=== PATIENT | female | born 1990 | race Caucasian/White ===

== ENCOUNTER 2016-05-27 08:35 | Inpatient (IN) | payer BC, OTHER ==
[2016-05-27] MEDS ORDERED: DEXTROSE 5%-LACTATED RINGERS 1,000 ML IV SCH (09:00)
[2016-05-27] MEDS ORDERED: TUBERCULIN PPD 5 TU/0.1ML SYRINGE (IN PATIENT USE ONLY) ID ONE (09:15)
[2016-05-27 09:28] VITALS: BMI 26.2
[2016-05-27] MEDS ORDERED: AMPICILLIN - 2 GM in SODIUM CHLORIDE 100 ML IVPB ONE (09:40)
[2016-05-27 10:28] LABS: BASOPHIL 0.1 % (0-2.0); EOSINOPHIL 0.5 % (0-4.5); MCH 28.8 pg (25.7-33.7); MCHC 34.1 g/dl (32.0-36.0); MEAN CELL VOLUME 84.3 fl (80-96); MEAN PLT VOLUME 9.5 fl (7.5-11.1); NEUTROPHILS 82.8 % (42.8-82.8); PLATELET COUNT 100 K/MM3 (134-434); RDW 15.1 % (11.6-15.6)
[2016-05-27 10:52] LABS: INR 0.99 (0.82-1.09); PROTHROMBIN TIME (PATIENT) 10.9 SEC (9.98-11.88)
[2016-05-27 10:55] LABS: ACTIVATED PTT 28.4 SECONDS (26.9-34.4)
[2016-05-27 11:06] LABS: COCKROFT - GAULT 243.2445; CREATININE 0.4 mg/dL (0.55-1.02)
[2016-05-27] MEDS ORDERED: BUTORPHANOL TARTRATE 1 MG/ML VIAL IVPB ONE (11:15)
[2016-05-27] MEDS ORDERED: PROMETHAZINE HCL 25 MG/1 ML VIAL IVPUSH ONE (12:29)
--- NOTE | 2016-05-27 12:39 | HP ---
Past Medical History - Admission Chief Complaint: Pain in labor History of Present Illness: 25 yo @ 40 weeks gestation, admitted for Labor pain. She denies any vaginal bleeding nor ROM. History Source: Patient Limitations to Obtaining History: No Limitations - Past Medical History ...: 3 ...Para: 1 ...Term: 1 ...: 0 ...Spon : 1 ...Induced : 0 ...Multiple Gestation: 0 ...LMP: 09/03/15 ... Weeks Gestation by Dates: 38.1 ...EDC by Dates: 06/09/16 ...EDC by Sono: 05/17/16 - Past Surgical History Past Surgical History: Yes: None Hx Myomectomy: No Hx Transabdominal Cerclage: No - Smoking History Smoking history: Never smoked Have you smoked in the past 12 months: No - Alcohol/Substance Use Hx Alcohol Use: No - Social History Usual Living Arrangement: Yes: With Spouse History of Recent Travel: No Home Medications - Allergies Allergies/Adverse Reactions: Allergies Allergy/AdvReac Type Severity Reaction Status Date / Time No Known Drug Allergies Allergy Mild Verified 05/27/16 10:48 - Home Medications Home Medications: Ambulatory Orders Vitamins (Sjr) - 1 tab PO DAILY 08/15/14 Family Disease History - Family Disease History Family History: Unremarkable Review of Systems - Review of Systems Constitutional: reports: No Symptoms Eyes: reports: No Symptoms HENT: reports: No Symptoms Neck: reports: No Symptoms Cardiovascular: reports: No Symptoms Respiratory: reports: No Symptoms Gastrointestinal: reports: No Symptoms Genitourinary: reports: Pain Breasts: reports: No Symptoms Reported Musculoskeletal: reports: No Symptoms Integumentary: reports: No Symptoms Neurological: reports: No Symptoms Endocrine: reports: No Symptoms Hematology/Lymphatic: reports: No Symptoms Psychiatric: reports: No Symptoms Pain Intensity: 7 Physical Exam - Maternity Vital Signs: Vital Signs Temperature 97.7 F 05/27/16 10:30 Pulse Rate 71 05/27/16 10:30 Respiratory Rate 18 05/27/16 10:30 Blood Pressure 112/54 05/27/16 10:30 O2 Sat by Pulse Oximetry (%) Constitutional: Yes: Well Nourished Eyes: Yes: Conjunctiva Clear HENT: Yes: Atraumatic Neck: Yes: Supple, Trachea Midline Cardiovascular: Yes: Regular Rate and Rhythm Lungs: Clear to auscultation Breast(s): Yes: WNL - Abdominal Exam/OB Number of Fetuses: Single Presentation: Vertex Contractions: Yes Regularity: Irregular - Vaginal Exam/OB Vaginal Bleediing: No Dilatation (cm): 6 Effacement (%): 80 Amniotic Membrane Status: Intact Station: -2 - Physical Exam Musculoskeletal: Yes: WNL Extremities: Yes: WNL ...Motor Strength: WNL Psychiatric: Yes: Alert, Oriented - Labs Lab Results: CBC, BMP 05/27/16 09:55 05/27/16 09:55 Problem List - Problems (1) Pain during labor Code(s): O99.89 - OTH DISEASES AND CONDITIONS COMPL PREG/CHLDBRTH R52 - PAIN, UNSPECIFIED Assessment/Plan Active labor Admit to L&D Group B Strep Prophylaxis Anticipate Vaginal delivery
[2016-05-27] MEDS ORDERED: OXYTOCIN 15 UNITS/ LR 250 ML 250 ML IVPB SCH (12:45)
[2016-05-27] MEDS: D5W-LR W/ 20 UNITS OXYTOCIN 1,000 ML IV SCH (13:20)
[2016-05-27] MEDS ORDERED: BISACODYL 10 MG SUPP.RECT RC PRN (13:40)
[2016-05-27] MEDS ORDERED: AMPICILLIN (PRE-DOCKED) 1 GM/100 ML BAG IVPB SCH (13:40)
[2016-05-27] MEDS ORDERED: WITCH HAZEL 50% (TUCKS) 40 PAD/JAR PAD TP PRN (13:40)
[2016-05-27] MEDS ORDERED: BENZOCAINE 28 GM HEMORRHOIDAL OINTMENT TP PRN (13:40)
[2016-05-27] MEDS ORDERED: METHYLERGONOVINE MALEATE 0.2 MG/1 ML AMP IM PRN (13:40)
[2016-05-27] MEDS ORDERED: IBUPROFEN 600 MG TABLET (FP) PO PRN (13:40)
[2016-05-27] MEDS ORDERED: BENZOCAINE 20% 57 GM BOTTLE TP PRN (13:40)
--- NOTE | 2016-05-27 13:44 | PN ---
Delivery - Delivery Vaginal Delivery: Spontaneous Type of Anesthesia: Local Episiotomy/Laceration: Midline EBL (cc): 350 Delivery, Single - Feeding Plan Initial Plan: Exclusive throughout hospitalization Remarks - Remarks Remarks: Normal spontaneous vaginal delivery over midline episiotomy. Nose / Oropharynx suctioned @ perineum. Nuchal cord x 1 clamped and cut. Baby handed to nurse. Placenta expelled spontaneously intact. Laceration repaired with 2.0 Chromic.
[2016-05-27] MEDS: FERROUS SO4 325 MG TABLET (FP) PO SCH (16:49)
[2016-05-27] MEDS: ACETAMINOPHEN 325 MG TABLET (FP) PO PRN (16:49)
[2016-05-28 08:10] LABS: MCH 28.8 pg (25.7-33.7); MCHC 33.7 g/dl (32.0-36.0); MEAN CELL VOLUME 85.6 fl (80-96); MEAN PLT VOLUME 9.7 fl (7.5-11.1); PLATELET COUNT 97 K/MM3 (134-434); RDW 15.1 % (11.6-15.6)
--- NOTE | 2016-05-28 08:58 | PN ---
Post Progress Note - Subjective Subjective: Pt seen/evaluated doing well. Pain controlled. Tolerating diet. VB minimal. No CP/SOB/F/C/MCCOLLUM. Type of Delivery: Vital Signs: Vital Signs Temperature 98.2 F 05/28/16 05:43 Pulse Rate 80 05/28/16 05:43 Respiratory Rate 18 05/28/16 05:43 Blood Pressure 98/53 05/28/16 05:43 O2 Sat by Pulse Oximetry (%) Uterus: Yes: Fundus Firm, Fundus below umbilicus Abdomen/GI: Yes: Abdomen soft, Passing flatus. No: Abdominal Distention, Tender Lochia: Yes: Rubra Lochia, amount: Small Extremities: Yes: Calves non-tender. No: Edema Perineum: Yes: Episiotomy - Labs Labs: CBC WBC 9.0 K/mm3 (4.0-10.0) 05/28/16 07:20 RBC 3.41 M/mm3 (3.60-5.2) L 05/28/16 07:20 Hgb 9.8 GM/dL (10.7-15.3) L D 05/28/16 07:20 Hct 29.2 % (32.4-45.2) L D 05/28/16 07:20 MCV 85.6 fl (80-96) 05/28/16 07:20 MCHC 33.7 g/dl (32.0-36.0) 05/28/16 07:20 RDW 15.1 % (11.6-15.6) 05/28/16 07:20 Plt Count 97 K/MM3 (134-434) L 05/28/16 07:20 MPV 9.7 fl (7.5-11.1) 05/28/16 07:20 Neutrophils % Y 05/28/16 07:20 Lymphocytes % Y 05/28/16 07:20 Monocytes % 5.1 % (3.8-10.2) 05/27/16 09:55 Eosinophils % 0.5 % (0-4.5) 05/27/16 09:55 Basophils % 0.1 % (0-2.0) 05/27/16 09:55 Problem List - Problems (1) Vaginal delivery Code(s): O80 - ENCOUNTER FOR FULL-TERM UNCOMPLICATED DELIVERY (2) Anemia Code(s): D64.9 - ANEMIA, UNSPECIFIED Assessment/Plan 25 y/o PPD#1 s/p normal - AFVSS - regular diet - PO pain meds - Hgb 9.8, pt stable, asymptomatic - routine care
[2016-05-28] MEDS: FERROUS SO4 325 MG TABLET (FP) PO SCH ×3 (09:16→17:27)
[2016-05-28] MEDS: PRENATAL VITAMINS W/ FOLIC ACID TABLET (FP) PO SCH (09:16)
[2016-05-28] MEDS: D5W-LR W/ 20 UNITS OXYTOCIN 1,000 ML IV SCH (14:05)
[2016-05-28] MEDS ORDERED: SENNOSIDES/DOCUSATE COMBO (SENNA PLUS) TABLET (UD) PO PRN (22:00)
[2016-05-29] MEDS: FERROUS SO4 325 MG TABLET (FP) PO SCH ×2 (08:14→12:05)
[2016-05-29 08:32] VITALS: BP 106/67; PULSE 82; TEMP 98.2
[2016-05-29] MEDS: ACETAMINOPHEN 325 MG TABLET (FP) PO PRN (09:22)
[2016-05-29] MEDS: PRENATAL VITAMINS W/ FOLIC ACID TABLET (FP) PO SCH (09:22)
== END 2016-05-29 12:30 | disposition home or self-care (01) | DRG 775 ==
LOC: JDEL 08:35 → JLDR 09:00 → J3W 15:30
PROVIDERS: ADMIT Obstetrics & Gynecology; ATTEND Obstetrics & Gynecology
PROC: 10E0XZZ Delivery of Products of Conception, External Approach (ICD-10-PCS; principal; 2016-05-27)
PROC: 0HQ9XZZ Repair Perineum Skin, External Approach (ICD-10-PCS; 2016-05-27)
PROC: 0W8NXZZ Division of Female Perineum, External Approach (ICD-10-PCS; 2016-05-27)
DX: O70.0 First degree perineal laceration during delivery (principal); O99.02 Anemia complicating childbirth; Z3A.40 40 weeks gestation of pregnancy; Z37.0 Single live birth
CPT/HCPCS: 36415; 59409; 80048; 85025; 85610; 85730; 86593; 86850; 86900; 86901

== ENCOUNTER 2018-12-11 06:35 | Inpatient (IN) | payer BC, OTHER ==
[2018-12-11] MEDS: ELECTROLYTE-148 SOLN 1,000 ML IV SCH (07:20)
[2018-12-11] MEDS ORDERED: OXYTOCIN 30 UNITS in 0.9% NS 60 UNIT/1,000 ML INFUS.BAG IVPB ONE (08:06)
[2018-12-11] MEDS ORDERED: CITRIC ACID/SODIUM CITRATE 30 ML UNIT-DOSE CUP PO ONE (08:06)
[2018-12-11 08:08] LABS: INR 0.89 (0.83-1.09); PROTHROMBIN TIME (PATIENT) 10.5 SEC (9.7-13.0)
[2018-12-11] MEDS ORDERED: ceFAZolin SODIUM 1 GM VIAL ONE (08:09)
[2018-12-11] MEDS ORDERED: DEXAMETHASONE SOD PHOSPHATE 4 MG/1 ML VIAL ONE (08:09)
[2018-12-11] MEDS ORDERED: morphine SULFATE/PF 0.5 MG/ML (2cc Syringe - QUVA) ONE (08:09)
[2018-12-11] MEDS ORDERED: PHENYLEPHRINE HCL 10 MG/1 ML SINGLE DOSE VIAL ONE (08:09)
[2018-12-11 08:11] LABS: ACTIVATED PTT 27.6 SECONDS (25.2-36.5)
--- NOTE | 2018-12-11 08:15 | HP ---
Past Medical History - Admission Chief Complaint: Elective History of Present Illness: 28 yo @ 39 weeks gestation, EDC 12/18/18,is pre op for primary due to breech presentation. History Source: Patient Limitations to Obtaining History: No Limitations - Past Medical History ...: 4 ...Para: 2 ...EDC by Josee: 12/18/18 - Past Surgical History Past Surgical History: Yes: None Hx Myomectomy: No Hx Transabdominal Cerclage: No - Smoking History Smoking history: Never smoked Have you smoked in the past 12 months: No - Alcohol/Substance Use Hx Alcohol Use: No - Social History History of Recent Travel: No Home Medications - Allergies Allergies/Adverse Reactions: Allergies Allergy/AdvReac Type Severity Reaction Status Date / Time No Known Drug Allergies Allergy Mild Verified 12/11/18 07:49 - Home Medications Home Medications: Ambulatory Orders Vitamins (Sjr) - 1 tab PO DAILY 08/15/14 Review of Systems - Review of Systems Constitutional: reports: No Symptoms Eyes: reports: No Symptoms HENT: reports: No Symptoms Neck: reports: No Symptoms Cardiovascular: reports: No Symptoms Respiratory: reports: No Symptoms Gastrointestinal: reports: No Symptoms Genitourinary: denies: Pain Breasts: reports: No Symptoms Reported Musculoskeletal: reports: No Symptoms Integumentary: reports: No Symptoms Neurological: reports: No Symptoms Endocrine: reports: No Symptoms Hematology/Lymphatic: reports: No Symptoms Psychiatric: reports: No Symptoms Pain Intensity: 0 Physical Exam - Maternity Constitutional: Yes: Well Nourished Eyes: Yes: Conjunctiva Clear HENT: Yes: Atraumatic Neck: Yes: Supple Cardiovascular: Yes: Regular Rate and Rhythm Lungs: Clear to auscultation - Abdominal Exam/OB Number of Fetuses: Single Presentation: Vertex - Physical Exam ...Motor Strength: WNL Psychiatric: Yes: Alert, Oriented Problem List - Problems (1) 39 weeks gestation of Problems reviewed: Yes Code(s): Z3A.39 - 39 WEEKS GESTATION OF (2) Malpresentation of fetus, antepartum Problems reviewed: Yes Code(s): O32.9XX0 - MATERNAL CARE FOR MALPRESENTATION OF FETUS, UNSP, UNSP Assessment/Plan malpresentation Elective Consent signed Anesthesia to see patient
[2018-12-11] MEDS: OXYTOCIN 20 UNITS in 0.9% NS 20 UNIT/1,000 ML INFUS.BAG IV SCH (09:01)
[2018-12-11] MEDS ORDERED: OXYTOCIN 10 UNITS/ML VIAL ONE (09:03)
[2018-12-11] MEDS ORDERED: MIDAZOLAM HCL 2 MG/2 ML SINGLE DOSE VIAL ONE (09:08)
[2018-12-11] MEDS ORDERED: KETOROLAC TROMETHAMINE 30 MG/1 ML VIAL ONE (09:17)
--- NOTE | 2018-12-11 09:35 | PN ---
Progress Note (short form) - Note Progress Note: I assisted Dr. BEAUCHAMP at the c/section for the entirety of the case.
[2018-12-11] MEDS ORDERED: METHYLERGONOVINE MALEATE 0.2 MG/1 ML AMP IM PRN (09:48)
[2018-12-11] MEDS ORDERED: oxyCODONE HCL 5 MG TABLET PO PRN (09:48)
--- NOTE | 2018-12-11 09:51 | OP ---
Operative Note - Note: Operative Date: 12/11/18 Pre-Operative Diagnosis: Elective / Breech presentation Operation: Primary Low Transverse Findings: Baby girl in transverse position Post-Operative Diagnosis: Same as Pre-op Surgeon: Jennifer Martinez Dressmaker Or Tailor: Bashir Mayen Anesthesia: Spinal Specimens Removed: Placenta Estimated Blood Loss (mls): 700 Operative Report Dictated: Yes
[2018-12-11] MEDS ORDERED: ONDANSETRON 4 MG/2 ML VIAL IVPUSH PRN (09:57)
[2018-12-11] MEDS ORDERED: ACETAMINOPHEN 1000 MG/100 ML VIAL (NON FORMULARY) IVPB PRN (09:59)
[2018-12-11 10:18] VITALS: BMI 26.6
[2018-12-11] MEDS: FERROUS SO4 325 MG TABLET (FP) PO SCH ×2 (11:03→22:41)
[2018-12-11] MEDS: PRENATAL VITAMINS W/ FOLIC ACID TABLET (FP) PO SCH (11:04)
--- NOTE | 2018-12-11 11:17 | OP ---
DATE OF OPERATION: 12/11/2018 PREOPERATIVE DIAGNOSIS: 39 weeks' gestation with malpresentation. POSTOPERATIVE DIAGNOSIS: 39 weeks' gestation with malpresentation. PROCEDURE: Primary low transverse section. SURGEON: Jennifer Martinez MD NATIONAL SERVICE OFFICER: Bashir Mayen MD ANESTHESIA: Spinal. COMPLICATIONS: None. ESTIMATED BLOOD LOSS: 700 mL. DESCRIPTION OF PROCEDURE: Patient was taken to the operating room where spinal anesthesia was administered. Patient was then prepped and draped in proper sterile fashion. A Pfannenstiel skin incision was made and carried down to the underlying layer of fascia. The fascia was incised in the midline and extended laterally. The inferior aspect of the fascial incision was then grasped with a Zoey clamp, elevated, and the rectus muscle dissected off bluntly. Attention was then turned to the superior aspect of the fascial incision, which in a similar fashion was then grasped with a Zoey clamp, elevated, and the rectus muscle dissected off bluntly. The rectus muscle was then in the midline. The peritoneum identified and entered sharply with the Metzenbaum scissors. The peritoneal incision was then identified and entered sharply with the Metzenbaum scissors. This incision was extended superiorly and inferiorly with good visualization of the bladder. Then the vesicouterine peritoneum was then grasped with a pickup and entered sharply with the Metzenbaum scissors. This incision was extended laterally and a bladder flap created digitally. The bladder blade was then inserted. Then the lower uterine segment was incised using a 10 blade. This incision was extended laterally. The head was found to be on the left side, and the fetus was grabbed and changed to the actual vertex position to allow head delivery in the vertex position. The head was then delivered in ROT position. Then the nose and mouth were suctioned and the cord clamped and cut. The was handed to the waiting heavy duty mechanic. The placenta was removed manually. The uterus exteriorized and cleared of all clots and debris. The uterine incision was repaired using 0 Biosyn in a running, locked fashion. A 2nd layer of the same suture was used as a means to provide excellent hemostasis. The pelvis was then completely irrigated. The uterus was returned to the abdomen. The peritoneum was closed using 3-0 Vicryl, and the fascia was reapproximated using 0 Vicryl in a running fashion. The skin was closed in a subcuticular fashion using 3-0 Vicryl. Patient tolerated the procedure well. Patient was taken to PACU in stable condition. PATHOLOGY: Placenta. David IBANEZ/[id number]
[2018-12-11] MEDS: IBUPROFEN 800 MG/8 ML IJ IVPB PRN (14:09)
[2018-12-12] MEDS: IBUPROFEN 800 MG/8 ML IJ IVPB PRN (03:35)
--- NOTE | 2018-12-12 05:29 | PN ---
Post Progress Note Type of Delivery: Primary C/S Vital Signs: Vital Signs Temperature 97.8 F 12/12/18 00:10 Pulse Rate 75 12/12/18 00:10 Respiratory Rate 20 12/12/18 03:00 Blood Pressure 115/55 L 12/12/18 00:10 O2 Sat by Pulse Oximetry (%) 97 12/11/18 10:35 Uterus: Yes: Fundus Firm, Fundus below umbilicus Incision: Yes: Dressing dry and intact Abdomen/GI: Yes: Abdomen soft, Tolerating PO (clears). No: Abdominal Distention , Passing flatus Lochia: Yes: Rubra Extremities: Yes: Calves non-tender Perineum: Yes: Intact Activity: Ambulating Problem List - Problems (1) delivery delivered Code(s): O82 - ENCOUNTER FOR DELIVERY WITHOUT INDICATION Assessment/Plan 28 y/o post op day 1 from primary c section due to breech presentation doing well no complaints OOB, no void yet advance diet as tolerated PO pain meds encourage ambulation routine care
[2018-12-12 07:22] LABS: BASO % 0.1 % (0-2.0); EOS % 1.7 % (0-4.5); HEMATOCRIT 30.5 % (32.4-45.2); HEMOGLOBIN 10.4 GM/dL (10.7-15.3); LYMPH % 19.4 % (8-40); MCH 30.5 pg (25.7-33.7); MEAN CELL VOLUME 89.8 fl (80-96); MEAN PLT VOLUME 9.5 fl (7.5-11.1); MONO % 6.2 % (3.8-10.2); NEUT % 72.6 % (42.8-82.8); PLATELET COUNT 102 K/MM3 (134-434); RBC 3.39 M/mm3 (3.60-5.2); RDW 13.6 % (11.6-15.6); WHITE BLOOD COUNT 8.8 K/mm3 (4.0-10.0)
[2018-12-12] MEDS ORDERED: BISACODYL 10 MG SUPP.RECT RC PRN (09:48)
--- NOTE | 2018-12-12 10:12 | PN ---
Progress Note (short form) - Note Progress Note: Anesthesia Post Op Note Pt seen s/p spinal for c/section Pt awake alert denies h/a, n/v Pt reports good pain control + puritis - improved with treatment Ambulating well, no urinary retention VSS no apparent anesthesia complications Pancho Aguilar.
[2018-12-12] MEDS: FERROUS SO4 325 MG TABLET (FP) PO SCH ×2 (11:37→21:32)
[2018-12-12] MEDS: PRENATAL VITAMINS W/ FOLIC ACID TABLET (FP) PO SCH (11:39)
[2018-12-12] MEDS: SIMETHICONE 80 MG TAB.CHEW (FP) PO PRN (19:48)
[2018-12-12] MEDS: IBUPROFEN 600 MG TABLET (FP) PO PRN (19:49)
[2018-12-13] MEDS: FERROUS SO4 325 MG TABLET (FP) PO SCH ×2 (09:06→22:06)
[2018-12-13] MEDS: SIMETHICONE 80 MG TAB.CHEW (FP) PO PRN ×2 (09:06→21:12)
[2018-12-13] MEDS: PRENATAL VITAMINS W/ FOLIC ACID TABLET (FP) PO SCH (09:06)
[2018-12-13] MEDS: IBUPROFEN 600 MG TABLET (FP) PO PRN ×2 (09:06→21:12)
--- NOTE | 2018-12-13 19:35 | PN ---
Post Note - Post Date of Delivery: 12/11/18 Post Day: 1 Vital Signs: Vital Signs - 24 hr 12/12/18 12/13/18 22:00 09:00 Temperature 97.8 F 98 F Pulse Rate 81 96 H Respiratory 18 18 Rate Blood Pressure 110/61 102/59 L Labs: Laboratory Results - last 24 hr 12/11/18 07:34 Hep Bs Antigen Confirm. indicated - Subjective Subjective: No Complaints, No Nausea or vomiting - Objective Afebrile: Yes Breast: Not engorged Abdomen: Soft, Non-tender, Other (Dressing intact no drainage) Uterus: Fundus firm Vagina: Scant lochia Extremities: Non-tender - Assessment/Plan (1) delivery delivered Assessment: Other (POD 1) Plan: Routine Care
[2018-12-13] MEDS: OXYTOCIN 20 UNITS in 0.9% NS 20 UNIT/1,000 ML INFUS.BAG IV SCH (23:25)
[2018-12-13] MEDS: ELECTROLYTE-148 SOLN 1,000 ML IV SCH (23:25)
--- NOTE | 2018-12-14 01:58 | DS ---
Physical Exam-SPLIT LEATHER MOSSER Vital Signs: Vital Signs Temperature 97.9 F 12/13/18 22:00 Pulse Rate 79 12/13/18 22:00 Respiratory Rate 18 12/13/18 22:00 Blood Pressure 101/52 L 12/13/18 22:00 O2 Sat by Pulse Oximetry (%) 97 12/11/18 10:35 Constitutional: Yes: Well Nourished, No Distress, Calm Cardiovascular: Yes: Regular Rate and Rhythm Respiratory: Yes: Regular Gastrointestinal: Yes: Soft ....Post : Yes: Uterus firm, Uterus non-tender Wound/Incision: Yes: Clean/Dry, Well Approximated Neurological: Yes: Alert, Oriented Psychiatric: Yes: Alert, Oriented Labs: CBC, BMP 12/12/18 06:42 Delivery - Delivery Type of Anesthesia: Spinal EBL (cc): 700 Delivery, Single - Stages of Labor Date of Delivery: 12/11/18 Time of Delivery: 09:00 Date Placenta Delivered: 12/11/18 Time Placenta Delivered: 09:01 - Condition of Aba Tutor/Block Inspector Present: Yes Name: Andrey Phillips Infant Gender: Female Weight: 7 lb 5 oz Position: Right, OT Total Hours ROM (Hrs/Mins): 0Hrs/3Mins - 1 Minute Total Score: 9 5 Minutes Total Score: 9 - Feeding Plan Initial Plan: Exclusive throughout hospitalization Discharge Summary Problems reviewed: Yes Reason For Visit: SECTION Current Active Problems 39 weeks gestation of (Acute) delivery delivered (Acute) Malpresentation of fetus, antepartum (Acute) Hospital Course: Pt admitted on 12/11/18 for scheduled c section due to breech presentation. Pt underwent normal c section and post / post op recovery and was discharged home in stable condition on post op day 3. Condition: Good - Instructions Diet, Activity, Other Instructions: Physical activity Resume your normal everyday activity as tolerated no heavy lifting or exercise until seen by your surgeon. You may walk unlimited amounts and climb stairs. You may resume driving the car when you feel safe and comfortable behind the wheel. No sexual activity as instructed. Wound care If they are tapes on the skin under the out of bandage leave them in place. They will peel off in the next 7 to 10 days. Do Not Peel them off. You may shower the day after surgery. If there are tapes present on the skin, you may shower over them. Diet There are no dietary restrictions. Eat healthy, high-fiber foods. Drink 6 to 8 glasses of liquid each day. This will assist in keeping your bowelsregular. Pain management You may take Tylenol or Ibuprofen (for example, Motrin, Advil etc.) as needed for pain. If you have any pain meds sent to the pharmacy, please take as directed for moderate to severe pain. Call MD for any of the following: Severe pain not relieved by medication Fever of 101 or higher Excessive bleeding or drainage on dressing Inability to urinate Disposition: HOME - Home Medications Comprehensive Discharge Medication List: Ambulatory Orders Vitamins (Sjr) - 1 tab PO DAILY 08/15/14 Ibuprofen [Motrin -] 600 mg PO QID PRN #28 tablet 12/13/18 Prescription Drug Monitoring Program (I-STOP) results: I-STOP not reviewed
[2018-12-14 08:43] LABS: BASO % 0.3 % (0-2.0); HEMATOCRIT 33.7 % (32.4-45.2); HEMOGLOBIN 11.4 GM/dL (10.7-15.3); LYMPH % 17.7 % (8-40); MCH 30.2 pg (25.7-33.7); MCHC 33.7 g/dl (32.0-36.0); MEAN CELL VOLUME 89.6 fl (80-96); MEAN PLT VOLUME 9.2 fl (7.5-11.1); MONO % 5.6 % (3.8-10.2); NEUT % 73.4 % (42.8-82.8); PLATELET COUNT 132 K/MM3 (134-434); RBC 3.76 M/mm3 (3.60-5.2); RDW 13.8 % (11.6-15.6); WHITE BLOOD COUNT 6.9 K/mm3 (4.0-10.0)
[2018-12-14] MEDS: FERROUS SO4 325 MG TABLET (FP) PO SCH ×2 (09:41→22:28)
[2018-12-14] MEDS: PRENATAL VITAMINS W/ FOLIC ACID TABLET (FP) PO SCH (09:42)
[2018-12-14] MEDS: IBUPROFEN 600 MG TABLET (FP) PO PRN ×3 (11:23→22:28)
[2018-12-14] MEDS: SIMETHICONE 80 MG TAB.CHEW (FP) PO PRN (22:28)
[2018-12-15 08:34] VITALS: BP 131/72; PULSE 87; TEMP 98.5
[2018-12-15] MEDS: FERROUS SO4 325 MG TABLET (FP) PO SCH (09:09)
[2018-12-15] MEDS: PRENATAL VITAMINS W/ FOLIC ACID TABLET (FP) PO SCH (09:09)
[2018-12-15] MEDS: IBUPROFEN 600 MG TABLET (FP) PO PRN (16:38)
[2018-12-15] MEDS: SIMETHICONE 80 MG TAB.CHEW (FP) PO PRN (16:40)
--- NOTE | 2018-12-18 16:30 | PATH ---
Surgical Pathology Report Patient Name: VIVIEN CHASE Med. Rec. 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 Specimen(s) Received PLACENTA Clinical History , 39 weeks primary for malpresentation Final Diagnosis PLACENTA: THIRD TRIMESTER PLACENTA. TRIVASCULAR CORD. MEMBRANES WITH NO DIAGNOSTIC ABNORMALITIES. Electronically Signed Mariposa Huynh M.D. Gross Description The specimen is received fresh labeled placenta and is a 417 gram, 16.0 x 14.0 x 2.7 cm. placenta with attached membranes and umbilical cord. The attached membranes are reina, translucent with focal opacities and insert marginally. The umbilical cord measures 27 cm. in length and averages 1.1 cm. in diameter. The cord inserts eccentrically, 2 cm. to the nearest margin. No true knots or strictures are identified. Cut surface of the umbilical cord reveals 3 vessels. The surface is white-blue with minimal fibrin deposition and appropriate caliber vessels. The maternal surface is red-brown with focal defects. Sectioning reveals red-brown, spongy parenchyma. No lesions are identified. Geneticist sections are submitted in three cassettes as follows: 1- membrane rolls and umbilical cord; 2-3- full thickness sections of placenta. /12/15/[address] [facility]
== END 2018-12-15 17:40 | disposition home or self-care (01) | DRG 788 ==
LOC: JLDR 06:35 → J3W 11:42
PROVIDERS: ADMIT Obstetrics & Gynecology; ATTEND Obstetrics & Gynecology
PROC: 10D00Z1 Extraction of Products of Conception, Low, Open Approach (ICD-10-PCS; principal; 2018-12-11)
DX: O32.1XX0 Maternal care for breech presentation, not applicable or unspecified (principal); Z3A.39 39 weeks gestation of pregnancy; Z37.0 Single live birth
CPT/HCPCS: 36415; 85025; 85610; 85730; 86850; 86900; 86901; 87340; 88307-TC